=== PATIENT | male | born 1990 | race Caucasian/White ===

== ENCOUNTER 2024-01-11 11:57 | Emergency (ER) | payer SELFPAY ==
[~2024-01-11] VITALS: Ht 177.8 cm; Wt 86.2 kg
[2024-01-11 12:00] VITALS: BP 115/59; PULSE 59; RESP 18; TEMP 98.1; O2SAT 99
[2024-01-11] MEDS ORDERED: IBUP-2213 PO (13:20)
[2024-01-11] MEDS ORDERED: BACI-418 TP (13:20)
[2024-01-11] MEDS ORDERED: CEPH-588 PO (13:20)
[2024-01-11] MEDS: BACITRACIN OINT 500 UNITS/GM PKT TP ONE (13:54)
[2024-01-11] MEDS: LIDOCAINE MPF 1% 10 MG/ML VIAL INJ ONE (13:55)
[2024-01-11 13:57] VITALS: BP 121/62; PULSE 88; RESP 16; TEMP 97.9; O2SAT 99
== END 2024-01-11 13:57 | disposition home or self-care (01) ==
LOC: MED 11:57
DX: S61.211A Laceration without foreign body of left index finger without damage to nail, initial encounter (principal); Z79.899 Other long term (current) drug therapy; X58.XXXA Exposure to other specified factors, initial encounter; Y93.89 Activity, other specified; Y92.89 Other specified places as the place of occurrence of the external cause; Y99.8 Other external cause status
CPT/HCPCS: 12001; 73140; 99283; J2001